=== PATIENT | male | born 1970 | race African-American/Black ===

== ENCOUNTER 2020-07-10 12:34 | Emergency (ER) | payer OTHER ==
[~2020-07-10] VITALS: Ht 170.2 cm; Wt 77.4 kg
[2020-07-10 13:22] LABS: BASO % 0.5 % (0.0-1.0); EOS # 0.2 10^3/uL (0.0-0.5); EOS % 3.4 % (0.0-3.0); HEMATOCRIT 48.8 % (42.0-52.0); HEMOGLOBIN 15.9 g/dl (13.5-17.5); LYMPH # 2.3 10^3/uL (1.5-5.0); MEAN CORPUSCULAR HEMOGLOBIN 30.8 pg (27.0-33.0); MEAN CORPUSCULAR HGB CONC 32.6 g/dl (32.0-36.5); MEAN CORPUSCULAR VOLUME 94.4 fl (80.0-96.0); MONO # 0.5 10^3/uL (0.0-0.8); MONO % 8.3 % (0.0-5.0); NEUTROPHILS # 3.4 10^3/uL (1.5-8.5); NEUTROPHILS % 52.3 % (36.0-66.0); PLATELET COUNT, AUTOMATED 281 10^3/uL (150-450); RED BLOOD COUNT 5.17 10^6/uL (4.30-6.10); WHITE BLOOD COUNT 6.5 10^3/uL (4.0-10.0)
--- NOTE | 2020-07-10 13:34 | REP ---
INDICATION: post op pain. COMPARISON: None. TECHNIQUE: Four views FINDINGS: Four views of the left femur demonstrate normal bones, joints, and soft tissues. No fracture or subluxation is seen. No opaque foreign body noted. There is not a ticket ower spurring at the superior pole of patella. There is evidence of old posttraumatic change in the proximal tibia just below the knee. No evidence of joint effusion. IMPRESSION: No fracture seen. Patellar spurring. No acute bony abnormality.. <Electronically signed by Dakota Edwards > 07/10/20 0828
--- NOTE | 2020-07-10 13:36 | REP ---
INDICATION: post op pain. COMPARISON: None. TECHNIQUE: Four views FINDINGS: Four views of the left tib fib demonstrate old orthopedic pin tracks from fixation in the proximal tibial metaphysis. Orthopedic plants is have been removed. There is mild arthritic change at the lateral compartment of the knee. A fabella is noted posterolaterally.. No fracture or subluxation is seen. No opaque foreign body noted. There is Achilles calcaneal spurring. IMPRESSION: Old orthopedic pin tracks in the proximal tibia. 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 Heel spur. No acute bony abnormality.. <Electronically signed by Dakota Edwards > 07/10/20 [id number]
[2020-07-10 13:44] LABS: ERYTHROCYTE SEDIMENTATION RATE 18 mm/hr (0-15)
[2020-07-10 13:48] LABS: BLOOD UREA NITROGEN 17 MG/DL (7-18); CALCIUM LEVEL 9.5 MG/DL (8.5-10.1); CARBON DIOXIDE LEVEL 28 MEQ/L (21-32); CHLORIDE LEVEL 106 MEQ/L (98-107); CREATININE FOR GFR 1.22 MG/DL (0.70-1.30); GLOMERULAR FILTRATION RATE > 60.0 (>60); GLUCOSE, FASTING 81 MG/DL (70-100); POTASSIUM SERUM 4.3 MEQ/L (3.5-5.1); SODIUM LEVEL 137 MEQ/L (136-145)
[2020-07-10] MEDS ORDERED: MOBI4TAB PO (14:03)
[2020-07-10 14:23] VITALS: BP 140/82
== END 2020-07-10 14:24 | disposition home or self-care (01) ==
LOC: M ED 12:34
DX: G89.29 Other chronic pain (principal); M79.605 Pain in left leg; M19.90 Unspecified osteoarthritis, unspecified site

== ENCOUNTER → 2020-10-27 | Outpatient (CLI) | payer OTHER ==
[~2020-10-27] MED LIST: MOBI4TAB PO
== END ==
LOC: M LAB 10:01
PROVIDERS: ATTEND Nurse Practitioner
DX: R12 Heartburn (principal)

== ENCOUNTER → 2020-11-14 | Outpatient (CLI) | payer OTHER ==
[~2020-11-14] MED LIST changes: +FAMO40TA3; +SUCR1TAB56
== END ==
LOC: M LABSMTC 11:41
PROVIDERS: ATTEND Anesthesiology
DX: Z01.812 Encounter for preprocedural laboratory examination (principal); Z20.822 Contact with and (suspected) exposure to COVID-19

== ENCOUNTER → 2020-11-28 | Outpatient (CLI) | payer OTHER | LOC: M LABSMTC 11:53 | PROVIDERS: ATTEND Anesthesiology | DX: Z01.812 Encounter for preprocedural laboratory examination (principal); Z20.822 Contact with and (suspected) exposure to COVID-19 ==

== ENCOUNTER 2021-01-10 18:37 | Emergency (ER) | payer OTHER ==
[~2021-01-10] VITALS: Ht 170.2 cm; Wt 80.9 kg
[2021-01-10 20:14] LABS: BASO % 0.5 % (0.0-1.0); EOS # 0.2 10^3/uL (0.0-0.5); EOS % 2.8 % (0.0-3.0); HEMATOCRIT 51.2 % (42.0-52.0); HEMOGLOBIN 16.7 g/dl (13.5-17.5); LYMPH # 2.7 10^3/uL (1.5-5.0); LYMPH % 43.5 % (24.0-44.0); MEAN CORPUSCULAR HEMOGLOBIN 29.6 pg (27.0-33.0); MEAN CORPUSCULAR HGB CONC 32.6 g/dl (32.0-36.5); MEAN CORPUSCULAR VOLUME 90.8 fl (80.0-96.0); MONO # 0.6 10^3/uL (0.0-0.8); MONO % 9.8 % (2.0-8.0); NEUTROPHILS # 2.6 10^3/uL (1.5-8.5); NEUTROPHILS % 43.1 % (36.0-66.0); PLATELET COUNT, AUTOMATED 342 10^3/uL (150-450); RED BLOOD COUNT 5.64 10^6/uL (4.30-6.10); WHITE BLOOD COUNT 6.1 10^3/uL (4.0-10.0)
[2021-01-10 20:20] VITALS: BP 132/84
[2021-01-10] MEDS ORDERED: ELIM5CRE2 TOP (20:22)
[2021-01-10] MEDS ORDERED: IVER1TAB PO (20:22)
[2021-01-10 20:40] LABS: ERYTHROCYTE SEDIMENTATION RATE 7 mm/hr (0-15)
== END 2021-01-10 20:53 | disposition home or self-care (01) ==
LOC: M ED 18:37
DX: R21 Rash and other nonspecific skin eruption (principal); I10 Essential (primary) hypertension; E78.5 Hyperlipidemia, unspecified; F17.200 Nicotine dependence, unspecified, uncomplicated; F12.20 Cannabis dependence, uncomplicated